=== PATIENT | male | born 1990 | race Caucasian/White ===

== ENCOUNTER 2021-12-02 16:26 | Emergency (ER) | payer OTHER ==
[~2021-12-02] VITALS: Ht 182.9 cm; Wt 95.5 kg
[2021-12-02 16:28] VITALS: BP 128/86; TEMP 98.2
[2021-12-02 17:30] VITALS: PULSE 75
== END 2021-12-02 17:30 | disposition home or self-care (01) ==
LOC: COL.ER 16:26
DX: S61.210A Laceration without foreign body of right index finger without damage to nail, initial encounter (principal); W26.0XXA Contact with knife, initial encounter